=== PATIENT | male | born 1955 | race African-American/Black ===

== ENCOUNTER 2019-11-25 08:16 | Inpatient (IN) | payer BC ==
[~2019-11-25] VITALS: Ht 175.3 cm; Wt 81.6 kg
[2019-11-25 08:56] LABS: BASOPHILS % 1.3 % (0.0-2.0); EOSINOPHILS % 7.5 % (0.0-5.0); HEMATOCRIT. 47.9 % (42.0-52.0); LYMPHOCYTES % 41.2 % (20.0-50.0); MEAN CORPUSCULAR HEMOGLOBIN 29.4 pg (28.0-32.0); MEAN PLATELET VOLUME 10.7 fl (7.4-10.4); MONOCYTES % 12.6 % (2.0-8.0); NEUTROPHILS % 37.4 % (40.0-76.0); PLATELET 168 x1000/uL (130-400); RED BLOOD CELL COUNT 5.44 mill/uL (4.7-6.1); RED CELL DISTRIBUTION WIDTH 14.5 % (11.6-14.6)
[2019-11-25 09:00] LABS: PROTHROMBIN TIME 11.1 sec (9.6-11.0)
[2019-11-25 09:34] LABS: CHLORIDE 106 mEq/L (98-107)
[2019-11-25 09:38] LABS: ETHANOL BLOOD < 10 mg/dL
[2019-11-25 09:40] LABS: LDL CHOLESTEROL 122 mg/dL (5-100)
[2019-11-25 09:51] LABS: CLARITY URINE CLEAR (CLEAR); COLOR URINE YELLOW (YELLOW); KETONES URINE NEGATIVE (NEGATIVE); LEUKOCYTE ESTERASE URINE NEGATIVE (NEGATIVE); NITRITE URINE NEGATIVE (NEGATIVE); OCCULT BLOOD URINE NEGATIVE (NEGATIVE); PH URINE 7.5 (4.5-8.0); PROTEIN URINE NEGATIVE (NEGATIVE); SPECIFIC GRAVITY URINE 1.016 (1.005-1.030)
[2019-11-25 10:01] LABS: *BARBITURATES SCREEN URINE NEGATIVE (NEGATIVE); *COCAINE SCREEN URINE NEGATIVE (NEGATIVE); CANNABINOID URINE SCREEN NEGATIVE (NEGATIVE); METHADONE URINE SCREEN NEGATIVE (NEGATIVE); OPIATES URINE SCREEN NEGATIVE (NEGATIVE); PHENCYCLIDINE URINE SCREEN NEGATIVE (NEGATIVE)
[2019-11-25 10:02] LABS: *AMPHETAMINES SCREEN URINE NEGATIVE (NEGATIVE); *BENZODIAZEPINES SCREEN URINE NEGATIVE (NEGATIVE)
[2019-11-25] MEDS ORDERED: ASPIRIN 81MG TABLET PO NR (10:45)
[2019-11-25] MEDS ORDERED: CLOPIDOGREL 75MG TABLET PO NR (10:45)
[2019-11-25] MEDS ORDERED: ONDANSETRON HCL 4MG/2ML INJ IV PRN (12:15)
[2019-11-25] MEDS ORDERED: ACETAMINOPHEN 325MG TABLET PO PRN (12:15)
[2019-11-25] MEDS ORDERED: ATORVASTATIN CALCIUM 40MG TABLET PO NR (12:35)
[2019-11-25] MEDS ORDERED: IOHEXOL-350 100 ML BOTTLE ONE (13:24)
[2019-11-25] MEDS ORDERED: CLONIDINE 0.1MG TABLET PO PRN (18:00)
[2019-11-25 21:00] VITALS: BP 178/102
[2019-11-25] MEDS: HEPARIN 5000 UNITS/ML VIAL SUBCUT SCH (21:36)
[2019-11-26] VITALS (20 sets, daily range): BP systolic 132–201; BP diastolic 51–135
[2019-11-26 07:26] LABS: BASOPHILS % 1.2 % (0.0-2.0); EOSINOPHILS % 2.8 % (0.0-5.0); HEMATOCRIT. 46.7 % (42.0-52.0); HEMOGLOBIN. 15.6 g/dL (14.0-18.0); LYMPHOCYTES % 22.2 % (20.0-50.0); MEAN CORPUSCULAR HEMOGLOBIN 29.4 pg (28.0-32.0); MEAN PLATELET VOLUME 11.2 fl (7.4-10.4); MONOCYTES % 10.6 % (2.0-8.0); NEUTROPHILS % 63.2 % (40.0-76.0); PLATELET 169 x1000/uL (130-400); RED CELL DISTRIBUTION WIDTH 14.8 % (11.6-14.6)
[2019-11-26 07:41] LABS: CHLORIDE 108 mEq/L (98-107)
[2019-11-26 07:52] LABS: LDL CHOLESTEROL 137 mg/dL (5-100)
[2019-11-26 07:55] LABS: HDL CHOLESTEROL 23 mg/dL (40-59)
[2019-11-26] MEDS: HEPARIN 5000 UNITS/ML VIAL SUBCUT SCH (09:02)
[2019-11-26] MEDS ORDERED: AMLO5TAB88 PO (11:30)
[2019-11-26] MEDS ORDERED: ATOR40TA70 MT (11:30)
[2019-11-26] MEDS ORDERED: HYDR12.54 MT (11:30)
[2019-11-26] MEDS ORDERED: CLOP75TA4 MT (12:38)
[2019-11-26] MEDS ORDERED: ASPI-1497 MT (12:38)
[2019-11-26] MEDS ORDERED: ASPIRIN 81MG TABLET PO SCH (12:45)
[2019-11-26] MEDS ORDERED: CLOPIDOGREL 75MG TABLET PO SCH (12:45)
[2019-11-26] MEDS: HYDROCHLOROTHIAZIDE 12.5MG CAPSULE PO SCH (13:04)
[2019-11-26] MEDS: AMLODIPINE 5MG TABLET PO SCH (13:06)
[2019-11-26] MEDS ORDERED: CLONIDINE 0.1MG TABLET PO PRN (18:00)
[2019-11-26] MEDS: NICARDIPINE 100 MG in SODIUM CHLORIDE 0.9% 60 ML IV PRN (20:59)
[2019-11-26] MEDS ORDERED: MORPHINE SULFATE 2 MG/ML CPJ (NOT FOR IM USE) IV PRN (22:00)
[2019-11-26] MEDS ORDERED: DEXT 5%/LACTATED RINGERS 1,000 ML IV SCH (22:00)
[2019-11-26] MEDS: LEVETIRACETAM 500MG PREMIX 100 ML IV SCH (22:02)
[2019-11-27] VITALS (35 sets, daily range): BP systolic 101–148; BP diastolic 56–99
[2019-11-27] MEDS: NICARDIPINE 100 MG in SODIUM CHLORIDE 0.9% 60 ML IV PRN (03:27)
[2019-11-27 05:52] LABS: CHLORIDE 107 mEq/L (98-107)
[2019-11-27 06:30] LABS: EOSINOPHILS % 1.2 % (0.0-5.0); HEMATOCRIT. 45.4 % (42.0-52.0); HEMOGLOBIN. 15.6 g/dL (14.0-18.0); LYMPHOCYTES % 21.5 % (20.0-50.0); MEAN CORPUSCULAR HEMOGLOBIN 30.1 pg (28.0-32.0); MEAN CORPUSCULAR VOLUME 87.3 fL (80.0-94.0); MEAN PLATELET VOLUME 11.1 fl (7.4-10.4); MONOCYTES % 9.4 % (2.0-8.0); NEUTROPHILS % 66.9 % (40.0-76.0); PLATELET 179 x1000/uL (130-400); RED CELL DISTRIBUTION WIDTH 14.3 % (11.6-14.6)
[2019-11-27] MEDS: HYDROCHLOROTHIAZIDE 12.5MG CAPSULE PO SCH (08:54)
[2019-11-27] MEDS: LEVETIRACETAM 500MG PREMIX 100 ML IV SCH (08:54)
[2019-11-27] MEDS: AMLODIPINE 5MG TABLET PO SCH (08:54)
== END 2019-11-27 13:30 | disposition left against medical advice (07) | DRG 64 ==
LOC: ER 08:16 → 6WST 11:21 → EDBEDREQ 11:26 → EDBEDREQSVC 11:26 → ENRESERV 19:13 → 5EST 11-26 20:54
PROVIDERS: ADMIT Internal Medicine; ATTEND Internal Medicine
DX: I61.8 Other nontraumatic intracerebral hemorrhage (principal); I21.4 Non-ST elevation (NSTEMI) myocardial infarction; N17.9 Acute kidney failure, unspecified; I16.1 Hypertensive emergency; G81.94 Hemiplegia, unspecified affecting left nondominant side; I13.0 Hypertensive heart and chronic kidney disease with heart failure and stage 1 through stage 4 chronic kidney disease, or unspecified chronic kidney disease; R29.702 NIHSS score 2; E78.5 Hyperlipidemia, unspecified; I49.1 Atrial premature depolarization; I50.9 Heart failure, unspecified; N18.9 Chronic kidney disease, unspecified; R29.810 Facial weakness; Z79.899 Other long term (current) drug therapy; Z85.038 Personal history of other malignant neoplasm of large intestine; Z91.14 Patient's other noncompliance with medication regimen; Z91.19 Patient's noncompliance with other medical treatment and regimen
CPT/HCPCS: 36415; 70496; 70498; 70544; 70553; 71045; 80053; 80061; 80305; 80320; 81003; 83036; 83721; 83735; 84484; 85025; 92610; 93005; 93306; 93880; 97162; 97166; 99291; J1644; J1953; J3490; J7050; Q9967; G0480